=== PATIENT | male | born 1960 | race African-American/Black ===

== ENCOUNTER 2016-08-17 10:26 | Inpatient (IN) | payer OTHER ==
[2016-08-17] MEDS ORDERED: ASPIRIN 81 MG CHEW PO STA (11:12)
--- NOTE | 2016-08-17 11:17 | ED ---
Recheck HPI - General Source: patient, RN notes reviewed Mode of arrival: ambulatory Limitations: no limitations <Richelle Malcolm - Last Filed: 08/17/16 13:53> <Lei Blackburn - Last Filed: 08/17/16 13:57> - General Chief Complaint: Recheck/Abnormal Lab/Rx Stated Complaint: leg swelling Time Seen by Provider: 08/17/16 11:07 - History of Present Illness Initial Comments: 56-year-old male presents to the emergency Department chief complaint of bilateral lower external swelling. Patient states he also has had scrotal swelling. Patient states that within about a week. Patient states that seems to be getting worse. Patient states he also has a little bit of belly pain around his on the bike S. Patient states it's worse if he coughs. Patient states he did get [id number] nausea medicine but takes away his belly pain completely and he feels much better. Patient states he was concerned about signs he thought that he should be seen. Patient states he is on Lasix he denies any history of heart failure however. Patient does have a history of hypertension. Patient states he's never sought up like this so he was concerned. Patient states he is not currently having any other symptoms. Patient denies any pain and leg states it is swollen. Patient denies any recent fever, chills, shortness of breath, chest pain, back pain, abdominal pain, nausea vomiting, numbness or tingling, dysuria or hematuria, constipation or diarrhea, headaches or visual changes, or any other current symptoms. (Richelle Malcolm) - Related Data Home Medications Medication Instructions Recorded Confirmed Furosemide [Lasix] 20 mg PO DAILY 08/17/16 08/17/16 amLODIPine BESYLATE [Norvasc] 2.5 mg PO DAILY 08/17/16 08/17/16 amLODIPine BESYLATE [Norvasc] 5 mg PO DAILY 08/17/16 08/17/16 Allergies Allergy/AdvReac Type Severity Reaction Status Date / Time No Known Allergies Allergy Verified 08/17/16 10:56 Review of Systems ROS Other: All systems not noted in ROS Statement are negative. <Richelle Malcolm - Last Filed: 08/17/16 13:53> ROS Other: All systems not noted in ROS Statement are negative. <Lei Blackburn - Last Filed: 08/17/16 13:57> ROS Statement: Those systems with pertinent positive or pertinent negative responses have been documented in the HPI. Past Medical History Past Medical History: Hypertension History of Any Multi-Drug Resistant Organisms: None Reported Past Surgical History: No Surgical Hx Reported Past Psychological History: No Psychological Hx Reported Smoking Status: Never smoker Past Alcohol Use History: Occasional Past Drug Use History: None Reported <Richelle Malcolm - Last Filed: 08/17/16 13:53> General Exam Limitations: no limitations <Richelle Malcolm - Last Filed: 08/17/16 13:53> General appearance: alert, in no apparent distress Head exam: Present: atraumatic, normocephalic, normal inspection Eye exam: Present: normal appearance, PERRL, EOMI. Absent: scleral icterus, conjunctival injection, periorbital swelling ENT exam: Present: normal exam, mucous membranes moist Neck exam: Present: normal inspection. Absent: tenderness, meningismus, lymphadenopathy Respiratory exam: Present: normal lung sounds bilaterally. Absent: respiratory distress, wheezes, rales, rhonchi, stridor Cardiovascular Exam: Present: regular rate, normal rhythm, normal heart sounds. Absent: systolic murmur, diastolic murmur, rubs, gallop, clicks GI/Abdominal exam: Present: soft, normal bowel sounds. Absent: distended, tenderness, guarding, rebound, rigid Extremities exam: Present: normal inspection, full ROM, normal capillary refill. Absent: tenderness, pedal edema, joint swelling, calf tenderness Back exam: Present: normal inspection Neurological exam: Present: alert, oriented X3, CN II-XII intact Psychiatric exam: Present: normal affect, normal mood Skin exam: Present: warm, dry, intact, normal color. Absent: rash <Lei Blackburn - Last Filed: 08/17/16 13:57> - General Exam Comments Initial Comments: General: The patient is awake and alert, in no distress, and does not appear acutely ill. Eye: Pupils are equal, round and reactive to light, extra-ocular movements are intact; there is normal conjunctiva bilaterally. No signs of icterus. Ears, nose, mouth and throat: There are moist mucous membranes and no oral lesions. Neck: The neck is supple, there is no tenderness. Cardiovascular: There is a regular rate and rhythm. No murmur, rub or gallop is appreciated. Respiratory: Lungs are clear to auscultation, respirations are non-labored, breath sounds are equal. No wheezes, stridor, rales, or rhonchi. Gastrointestinal: Soft, non-distended, non-tender abdomen without masses or organomegaly noted. There is no rebound or guarding present. No CVA tenderness. Bowel sounds are unremarkable. Male : Patient does have edema to the scrotum. Back: There is no tenderness to palpation in the midline. There is no obvious deformity. No rashes noted. Musculoskeletal: Normal ROM, no tenderness, There is no pedal edema. Patient has 2+ pain edema to bilateral lower extremities Sensation intact. Pulses equal bilaterally 2+. Neurological: CN II-XII intact, There are no obvious motor or sensory deficits. Coordination appears grossly intact. Speech is normal. Skin: Skin is warm and dry and no rashes or lesions are noted. Psychiatric: Cooperative, appropriate mood & affect, normal judgment. (Richelle Malcolm) Course <Richelle Malcolm - Last Filed: 08/17/16 13:53> <Lei Blackburn - Last Filed: 08/17/16 13:57> Vital Signs 08/17/16 10:40 Temperature 97.8 F Pulse Rate 94 Respiratory 20 Rate Blood Pressure 142/93 O2 Sat by Pulse 98 Oximetry - Reevaluation(s) Reevaluation #1: 08/17/16 13:55 Patient is in no acute cardiac distress (Lei Blackburn) Medical Decision Making - Lab Data Result diagrams: 08/17/16 12:10 08/17/16 12:10 - EKG Data -: EKG Interpreted by Nv - Radiology Data Radiology results: report reviewed, image reviewed <Richelle Malcolm - Last Filed: 08/17/16 13:53> - Lab Data Result diagrams: 08/17/16 12:10 08/17/16 12:10 <Lei Blackburn - Last Filed: 08/17/16 13:57> - Medical Decision Making 56-year-old male presents to emergency room chief complaint unfortunately swelling and scrotal swelling. At this time the patient does appear to be CHF with elevated BNP. Chest x-ray does show suspicion as well. At this time patient does also have a mildly elevated troponin. Patient's creatinine is mildly elevated but not much more than usual. At this time we will start IV heparin we'll put patient on aspirin we will also start the patient on IV Lasix. We will have cardiology consult. Dr. Castanon was contacted by Dr. Blackburn regarding the case. (Richelle Malcolm) 56 now the ER for evaluation of pain. Patient is with CHF, with ACS, patient will be admitted for anticoagulation and cardiac evaluation, initial EKG shows no ST elevations (Lei Blackburn) - Lab Data Lab Results 08/17/16 08/17/16 08/17/16 Range/Units 12:10 12:10 12:10 WBC 3.4 L (3.8-10.6) k/uL RBC 4.56 (4.30-5.90) m/uL Hgb 13.4 (13.0-17.5) gm/dL Hct 43.8 (39.0-53.0) % MCV 96.1 (80.0-100.0) fL MCH 29.3 (25.0-35.0) pg MCHC 30.5 L (31.0-37.0) g/dL RDW 16.4 H (11.5-15.5) % Plt Count 257 (150-450) k/uL Neutrophils % 70 % Lymphocytes % 14 % Monocytes % 5 % Eosinophils % 6 % Basophils % 1 % Neutrophils # 2.4 (1.3-7.7) k/uL Lymphocytes # 0.5 L (1.0-4.8) k/uL Monocytes # 0.2 (0-1.0) k/uL Eosinophils # 0.2 (0-0.7) k/uL Basophils # 0.1 (0-0.2) k/uL Hypochromasia Moderate Anisocytosis Slight Sodium 142 (137-145) mmol/L Potassium 4.3 (3.5-5.1) mmol/L Chloride 102 (98-107) mmol/L Carbon Dioxide 28 (22-30) mmol/L Anion Gap 12 mmol/L BUN 19 (9-20) mg/dL Creatinine 1.38 H (0.66-1.25) mg/dL Est GFR (MDRD) Af Amer >60 (>60 ml/min/1.73 sqM) Est GFR (MDRD) Non-Af 53 (>60 ml/min/1.73 sqM) Glucose 89 (74-99) mg/dL Calcium 9.3 (8.4-10.2) mg/dL Magnesium 1.8 (1.6-2.3) mg/dL Total Bilirubin 2.9 H (0.2-1.3) mg/dL AST 27 (17-59) U/L ALT 45 (21-72) U/L Alkaline Phosphatase 158 H (38-126) U/L Total Creatine Kinase 152 (55-170) U/L CK-MB (CK-2) 1.2 (0.0-2.4) ng/mL CK-MB (CK-2) Rel Index 0.8 Troponin I 0.066 H* (0.000-0.034) ng/mL NT-Pro-B Natriuret Pep pg/mL Total Protein 6.9 (6.3-8.2) g/dL Albumin 3.8 (3.5-5.0) g/dL Amylase 33 (30-110) U/L Lipase 92 (23-300) U/L Urine Color Urine Appearance (Clear) Urine pH (5.0-8.0) Ur Specific Arnett (1.001-1.035) Urine Protein (Negative) Urine Glucose (UA) (Negative) Urine Ketones (Negative) Urine Blood (Negative) Urine Nitrate (Negative) Urine Bilirubin (Negative) Urine Urobilinogen (<2.0) mg/dL Ur Leukocyte Esterase (Negative) Urine WBC (0-5) /hpf Ur Squamous Epith Cells (0-4) /hpf Hyaline Casts (0-2) /lpf Urine Mucus (None) /hpf 08/17/16 08/17/16 Range/Units 12:10 12:35 WBC (3.8-10.6) k/uL RBC (4.30-5.90) m/uL Hgb (13.0-17.5) gm/dL Hct (39.0-53.0) % MCV (80.0-100.0) fL MCH (25.0-35.0) pg MCHC (31.0-37.0) g/dL RDW (11.5-15.5) % Plt Count (150-450) k/uL Neutrophils % % Lymphocytes % % Monocytes % % Eosinophils % % Basophils % % Neutrophils # (1.3-7.7) k/uL Lymphocytes # (1.0-4.8) k/uL Monocytes # (0-1.0) k/uL Eosinophils # (0-0.7) k/uL Basophils # (0-0.2) k/uL Hypochromasia Anisocytosis Sodium (137-145) mmol/L Potassium (3.5-5.1) mmol/L Chloride (98-107) mmol/L Carbon Dioxide (22-30) mmol/L Anion Gap mmol/L BUN (9-20) mg/dL Creatinine (0.66-1.25) mg/dL Est GFR (MDRD) Af Amer (>60 ml/min/1.73 sqM) Est GFR (MDRD) Non-Af (>60 ml/min/1.73 sqM) Glucose (74-99) mg/dL Calcium (8.4-10.2) mg/dL Magnesium (1.6-2.3) mg/dL Total Bilirubin (0.2-1.3) mg/dL AST (17-59) U/L ALT (21-72) U/L Alkaline Phosphatase (38-126) U/L Total Creatine Kinase (55-170) U/L CK-MB (CK-2) (0.0-2.4) ng/mL CK-MB (CK-2) Rel Index Troponin I (0.000-0.034) ng/mL NT-Pro-B Natriuret Pep 5920 pg/mL Total Protein (6.3-8.2) g/dL Albumin (3.5-5.0) g/dL Amylase (30-110) U/L Lipase (23-300) U/L Urine Color Yellow Urine Appearance Clear (Clear) Urine pH 6.0 (5.0-8.0) Ur Specific Arnett 1.013 (1.001-1.035) Urine Protein 3+ H (Negative) Urine Glucose (UA) Negative (Negative) Urine Ketones Negative (Negative) Urine Blood Negative (Negative) Urine Nitrate Negative (Negative) Urine Bilirubin Negative (Negative) Urine Urobilinogen 6.0 (<2.0) mg/dL Ur Leukocyte Esterase Negative (Negative) Urine WBC <1 (0-5) /hpf Ur Squamous Epith Cells <1 (0-4) /hpf Hyaline Casts 3 H (0-2) /lpf Urine Mucus Rare H (None) /hpf 08/17/16 13:28 Patient's EKG was reviewed that does show sinus rhythm with PVCs. There is some left atrial enlargement. With a prolonged QT. There does not appear to be any ST elevation. Ventricular rate was 90. (Richelle Malcolm) Critical Care Time Critical Care Time: Yes Total Critical Care Time: 31 <Lei Blackburn - Last Filed: 08/17/16 13:57> Disposition Time of Disposition: 13:29 Decision Date: 08/17/16 Decision Time: 13:30 <Richelle Malcolm - Last Filed: 08/17/16 13:53> <Lei Blackburn - Last Filed: 08/17/16 13:57> Clinical Impression: Acute exacerbation of CHF (congestive heart failure), Scrotal swelling, Elevated troponin, Elevated creatine kinase Disposition: ADMITTED IP TO THIS HOSP Condition: Stable
[2016-08-17 12:23] LABS: Anisocytosis Slight; Basophils # (A) 0.1 k/uL (0-0.2); Basophils % (A) 1 %; CH 29.4; CHCM 30.8; Eosinophils # (A) 0.2 k/uL (0-0.7); Eosinophils % (A) 6 %; HCT 43.8 % (39.0-53.0); HDW 2.77; HGB 13.4 gm/dL (13.0-17.5); Hypochromasia Moderate; Luc # (Auto) 0.13; Luc % (Auto) 4; Lymphocytes # (A) 0.5 k/uL (1.0-4.8); Lymphocytes % (A) 14 %; MCH 29.3 pg (25.0-35.0); MCHC 30.5 g/dL (31.0-37.0); MCV 96.1 fL (80.0-100.0); Mean Platelet Volume 7.2; Monocytes # (A) 0.2 k/uL (0-1.0); Monocytes % (A) 5 %; Neutrophils # (A) 2.4 k/uL (1.3-7.7); Neutrophils % (A) 70 %; RBC 4.56 m/uL (4.30-5.90); RDW 16.4 % (11.5-15.5); WBC 3.4 k/uL (3.8-10.6); WBC (Perox) 3.33
[2016-08-17 12:33] LABS: ALT 45 U/L (21-72); AST 27 U/L (17-59); Alkaline Phosphatase 158 U/L (38-126); Amylase 33 U/L (30-110); Anion Gap 12 mmol/L; Blood Urea Nitrogen 19 mg/dL (9-20); Calcium 9.3 mg/dL (8.4-10.2); Carbon Dioxide 28 mmol/L (22-30); Chloride 102 mmol/L (98-107); Glucose 89 mg/dL (74-99); Magnesium 1.8 mg/dL (1.6-2.3); Non-African American GFR(MDRD) 53 (>60 ml/min/1.73 sqM); Potassium 4.3 mmol/L (3.5-5.1); Sodium 142 mmol/L (137-145); Total Bilirubin 2.9 mg/dL (0.2-1.3); Total Protein 6.9 g/dL (6.3-8.2)
--- NOTE | 2016-08-17 12:33 | XR ---
EXAMINATION TYPE: XR chest 2V DATE OF EXAM: 08/17/2016 12:28 PM COMPARISON: Chest x-ray January 25, 2016 HISTORY: Chest pain TECHNIQUE: Frontal and lateral views of the chest are obtained. FINDINGS: Diminished inspiration is seen on current study with perihilar edema and/or infiltrates fel t present. The cardiac silhouette size is enlarged. No large pleural effusion or pneumothorax is seen bilaterally The osseous structures are intact. IMPRESSION: Cannot exclude CHF exacerbation as there is cardiomegaly with new mild central alveolar edema and/or infiltrates, clinical correlation advised. Finding may be exaggerated by poor inspiratio n.
--- NOTE | 2016-08-17 12:35 | XR ---
EXAMINATION TYPE: XR abdomen 2V DATE OF EXAM: 08/17/2016 12:28 PM CLINICAL HISTORY: Abdominal pain with nausea and vomiting for one week. TECHNIQUE: Supine and upright views of the abdomen are obtained. COMPARISON: None. FINDINGS: Scattered gas is seen in non-distended small bowel loops. Some gas-filled small bowel loop s in the left upper to mid abdomen are prominent, few are dilated up to 3.8 cm though this is usually exaggerated on plain films. No significant gastric distention is identified. Gas is seen in nondiste nded colon. Cardiomegaly is present. No pneumoperitoneum or suspicious calcification is identified. V ascular calcification is present in the pelvis. Visualized osseous structures are intact. IMPRESSION: Overall nonspecific favor nonobstructive bowel gas pattern.
[2016-08-17] MEDS ORDERED: FUROSEMIDE 10 MG/ML 4 ML VIAL IV STA (12:36)
[2016-08-17 12:58] LABS: Appearance,Urine Clear (Clear); Bilirubin,Urine Negative (Negative); Glucose,Urine (UA) Negative (Negative); Ketones,Urine Negative (Negative); Leukocyte Esterase,Urine Negative (Negative); Mucus,Urine Rare /hpf; Nitrite,Urine Negative (Negative); Particle Count 1940; Protein,Urine 3+ (Negative); Specific Gravity,Urine 1.013 (1.001-1.035); Squamous Epithelial Cell,Urine <1 /hpf (0-4); UA Billing (MACRO vs. MICRO) MICRO; WBC,Urine <1 /hpf (0-5)
[2016-08-17 12:58] LABS: Creatine Kinase MB 1.2 ng/mL (0.0-2.4)
[2016-08-17 13:03] LABS: Troponin I 0.066 ng/mL (0.000-0.034)
[2016-08-17] MEDS ORDERED: ASPIRIN 325 MG TAB PO STA (13:30)
[2016-08-17] MEDS ORDERED: FUROSEMIDE 10 MG/ML 4 ML VIAL IV SCH (13:30)
[2016-08-17] MEDS ORDERED: HEPARIN SODIUM,PORCINE 5,000 UNIT/ML 1 ML VIAL IV PRN (13:31)
[2016-08-17] MEDS ORDERED: HEPARIN SODIUM,PORCINE 5,000 UNIT/ML 1 ML VIAL IV ONE (13:31)
[2016-08-17] MEDS ORDERED: HEPARIN SODIUM,PORCINE/D5W PMX 25,000 UNIT in DEXTROSE/WATER 1 500ML.BAG IV SCH (13:45)
[2016-08-17 14:17] LABS: INR 1.4 (<1.1); Partial Thromboplastin Time 26.9 sec (22.0-30.0); Prothrombin Time 13.5 sec (9.0-12.0)
[2016-08-17] MEDS: NITROGLYCERIN OINT 1 INCH/GM PACKET TOPICAL SCH ×2 (17:16→22:16)
[2016-08-17 21:03] LABS: Creatine Kinase MB 1.3 ng/mL (0.0-2.4)
[2016-08-17 21:05] LABS: Troponin I 0.055 ng/mL (0.000-0.034)
[2016-08-17] MEDS: FUROSEMIDE 10 MG/ML 4 ML VIAL IV SCH (23:38)
[2016-08-18 03:13] LABS: Anisocytosis Slight; Basophils % (A) 1 %; CH 29.4; CHCM 30.9; Eosinophils # (A) 0.1 k/uL (0-0.7); Eosinophils % (A) 4 %; HCT 40.7 % (39.0-53.0); HDW 2.77; HGB 12.7 gm/dL (13.0-17.5); Hypochromasia Moderate; Luc # (Auto) 0.12; Luc % (Auto) 4; Lymphocytes # (A) 0.6 k/uL (1.0-4.8); Lymphocytes % (A) 20 %; MCH 29.8 pg (25.0-35.0); MCHC 31.1 g/dL (31.0-37.0); MCV 95.6 fL (80.0-100.0); Mean Platelet Volume 7.3; Monocytes # (A) 0.4 k/uL (0-1.0); Monocytes % (A) 12 %; Neutrophils # (A) 1.7 k/uL (1.3-7.7); Neutrophils % (A) 58 %; RBC 4.26 m/uL (4.30-5.90); RDW 16.3 % (11.5-15.5); WBC 2.9 k/uL (3.8-10.6); WBC (Perox) 3.03
[2016-08-18 03:20] LABS: INR 1.4 (<1.1); Partial Thromboplastin Time 46.3 sec (22.0-30.0); Prothrombin Time 13.8 sec (9.0-12.0)
[2016-08-18 03:50] LABS: Creatine Kinase MB 1.1 ng/mL (0.0-2.4)
[2016-08-18 03:57] LABS: Troponin I 0.055 ng/mL (0.000-0.034)
[2016-08-18] MEDS: FUROSEMIDE 10 MG/ML 4 ML VIAL IV SCH (08:34)
[2016-08-18] MEDS: ASPIRIN 325 MG TAB PO SCH (09:19)
[2016-08-18] MEDS: LISINOPRIL 5 MG TAB PO SCH (09:25)
--- NOTE | 2016-08-18 09:30 | CONS ---
DATE OF CONSULTATION: CHIEF COMPLAINT: New onset congestive heart failure. Karan is a 56-year-old gentleman with no significant past medical history that came to hospital complaining of bilateral lower extremity swelling. This has been going on for the last 2 weeks and now has developed even scrotal edema. He complains of exertional shortness of breath. There is no history of paroxysmal nocturnal dyspnea or orthopnea. He has history of hypertension, but denies coronary artery disease, angioplasty or valvular heart disease that he knows of. MEDICATIONS: The patient was on amlodipine, Lasix at home. ALLERGIES: There are no known drug allergies. Family history is negative for premature coronary artery disease. SOCIAL HISTORY: Denies current smoking, EtOH use or drug abuse. REVIEW OF SYSTEMS: HEENT is unremarkable. CARDIAC: As described above. RESPIRATORY: Negative. GI: Negative. GENITOURINARY: Negative. ALLERGY/IMMUNOLOGY: Negative. ENDOCRINE: Negative. DERMATOLOGY: Negative. CONSTITUTIONAL: Negative. The rest of the system review is not relevant. On exam, he is comfortable at rest. Heart rate is 89 beats per minute, blood pressure is 140/80, respiratory rate is 18. There is no jugular venous distention. Chest exam reveals good air entry bilaterally. Heart exam reveals first and second heart sounds, a systolic murmur at the left lower sternal border. Abdomen is soft. Exam of the extremities reveals 3+ edema. Peripheral pulses are felt. Labs show a hemoglobin of 12.7, platelet count is 260. Tropes are mildly elevated. BUN is 19. Creatinine is 1.3. Potassium is 4.3, AST, ALT are within normal limits. ASSESSMENT: 1. Acute onset congestive heart failure, probably systolic. 2. History of hypertension. 3. Abnormal EKG. 4. Mild troponin elevation. PLAN: I am going to treat the patient with IV Lasix. I am going to stop the IV heparin and put him on subQ heparin. Increase the dose of Lasix to 80 mg IV push t.i.d., start him on an JESSY inhibitor and a beta pierre. I will decide on further course of action based on how he progresses from here.
--- NOTE | 2016-08-18 10:14 | ECHOF ---
Referral Reason:chf MEASUREMENTS -------- HEIGHT: 180.3 cm WEIGHT: 105.7 kg BP: 118/67 IVSd: 1.7 cm (0.6 - 1.1) LVIDd: 5.6 cm (3.9 - 5.3) LVPWd: 1.3 cm (0.6 - 1.1) IVSs: 2.2 cm LVIDs: 4.8 cm LVPWs: 1.5 cm LAESV Index (A-L): 57.02 ml/m Ao Diam: 2.7 cm (2.0 - 3.7) AV Cusp: 1.9 cm (1.5 - 2.6) LA Diam: 5.2 cm (2.7 - 3.8) MV EXCURSION: 12.148 mm (> 18.000) MV EF SLOPE: 88 mm/s (70 - 150) EPSS: 0.5 cm MV E Mo: 0.90 m/s MV DecT: 153 ms MV A Mo: 0.46 m/s MV E/A Ratio: 1.95 RAP: 15.00 mmHg RVSP: 52.29 mmHg FINDINGS -------- Sinus rhythm with extra systolic beats. This was a technically good study. There is moderate concentric left ventricular hypertrophy. There is moderate global hypokinesis of LV . Overall left ventricular systolic function is moderately impaired with, an EF between 35 - 40 %. The right ventricle is normal in size and function. LA is severely dilated >40 ml/m2 The right atrium is normal in size. Aortic valve is trileaflet and is mildly thickened. The mitral valve leaflets are mildly thickened. Mild mitral annular calcification present. Mild mitral regurgitation is present. Moderate tricuspid regurgitation present. There is moderate pulmonary hypertension. The right ventricular systolic pressure, as measured by Doppler, is 52.29mmHg. Pulmonic valve appears structurally normal. The aortic root size is normal. The inferior vena cava is mildly dilated. There is a trivial pericardial effusion present. CONCLUSIONS -------- 1. Sinus rhythm with extra systolic beats. 2. The mitral valve leaflets are mildly thickened. 3. Mild mitral annular calcification present. 4. Mild mitral regurgitation is present. 5. Moderate tricuspid regurgitation present. 6. There is moderate pulmonary hypertension. 7. The right ventricular systolic pressure, as measured by Doppler, is 52.29mmHg. 8. Pulmonic valve appears structurally normal. 9. The aortic root size is normal. 10. The inferior vena cava is mildly dilated. 11. There is a trivial pericardial effusion present. 12. This was a technically good study. 13. There is moderate concentric left ventricular hypertrophy. 14. There is moderate global hypokinesis of LV . 15. Overall left ventricular systolic function is moderately impaired with, an EF between 35 - 40 %. 16. The right ventricle is normal in size and function. 17. LA is severely dilated >40 ml/m2 18. The right atrium is normal in size. 19. Aortic valve is trileaflet and is mildly thickened. FLAT KNITTER: Priyanka Ambrose RDCS
[2016-08-18] MEDS ORDERED: IBUPROFEN 400 MG TAB PO STA (10:38)
[2016-08-18 12:05] LABS: ALT 42 U/L (21-72); AST 26 U/L (17-59); Alkaline Phosphatase 141 U/L (38-126); Anion Gap 14 mmol/L; Blood Urea Nitrogen 16 mg/dL (9-20); Calcium 9.2 mg/dL (8.4-10.2); Carbon Dioxide 31 mmol/L (22-30); Chloride 96 mmol/L (98-107); Glucose 103 mg/dL (74-99); Non-African American GFR(MDRD) 59 (>60 ml/min/1.73 sqM); Potassium 3.6 mmol/L (3.5-5.1); Sodium 141 mmol/L (137-145); Total Bilirubin 3.3 mg/dL (0.2-1.3); Total Protein 6.6 g/dL (6.3-8.2)
[2016-08-18 12:44] LABS: Anisocytosis Slight; Basophils # (A) 0.1 k/uL (0-0.2); Basophils % (A) 2 %; CH 29.3; CHCM 30.7; Eosinophils # (A) 0.1 k/uL (0-0.7); Eosinophils % (A) 4 %; HCT 43.2 % (39.0-53.0); HDW 2.71; HGB 13.3 gm/dL (13.0-17.5); Hypochromasia Moderate; Luc # (Auto) 0.06; Luc % (Auto) 2; Lymphocytes # (A) 0.4 k/uL (1.0-4.8); Lymphocytes % (A) 15 %; MCH 29.5 pg (25.0-35.0); MCHC 30.8 g/dL (31.0-37.0); Mean Platelet Volume 7.7; Monocytes # (A) 0.3 k/uL (0-1.0); Monocytes % (A) 9 %; Neutrophils # (A) 1.9 k/uL (1.3-7.7); Neutrophils % (A) 68 %; RDW 16.3 % (11.5-15.5); WBC 2.9 k/uL (3.8-10.6); WBC (Perox) 3.16
[2016-08-18] MEDS: HEPARIN SODIUM,PORCINE 5,000 UNIT/ML 1 ML VIAL SQ SCH ×2 (15:40→23:33)
[2016-08-18] MEDS: FUROSEMIDE 10 MG/ML 10 ML VIAL IV SCH ×2 (15:40→23:33)
--- NOTE | 2016-08-18 16:02 | P.PN ---
Subjective 56-year-old presented on the day of admission to the emergency room with a chief complaint of noting increase edema to the bilateral lower extremities with scrotal edema. He stated that the symptoms occurred about a week ago and became more symptomatic done worse. He stated that he felt nauseated but did not note any decrease in appetite and also no active emesis. Patient stated that he became concerned came in the emergency room for the above-mentioned symptoms. Patient stated he never been told he had heart failure before does have a history of hypertension. An echocardiogram was obtained. It showed left ventricular systolic function moderately impaired with an EF between 35 and 40%. There is moderate pulmonary hypertension. Patient is being treated for acute exacerbation decompensated congestive heart failure systolic dysfunction with a mildly elevated troponin. Cardiology recommends IV Lasix start patient on an JESSY inhibitor and a beta pierre and monitor the response patient was started on Lasix 80 IV push 3 times a day Objective - Vital Signs Vital signs: Vital Signs Temp 97.9 F 08/18/16 11:24 Pulse 92 08/18/16 12:00 Resp 16 08/18/16 15:38 BP 135/95 08/18/16 15:38 Pulse Ox 94 L 08/18/16 15:38 Intake & Output 08/17/16 08/18/16 08/18/16 18:59 06:59 18:59 Intake Total 360 331.045 720 Output Total 1000 4025 600 Balance -807 -3613.955 120 Weight 113.1 kg 105.7 kg Intake: Intake, IV Titration 331.045 Amount Heparin Sodium,Porcine/ 331.045 D5w Pmx 25,000 unit In Dextrose/Water 1 500ml. bag @ 11.024 UNITS/KG/HR 20 mls/hr IV .Q24H [facility] Rx #:[id number] Oral 360 720 Output: Urine 1000 4025 600 Other: Voiding Method Urinal Toilet Urinal Urinal # Voids 1 1 3 - Exam Physical exam 56-year-old gentleman sitting up legs are edematous 3+ nonpitting denies chest pain denies shortness of breath lungs fine crackles at the bases upper airways bronchial breath sounds Heart S1-S2 audible positive murmur noted Abdomen obese soft nontender reports a nausea sensation no active emesis Extremities persistent nonpitting bilateral 3+ lower extremity edema - Labs CBC & Chem 7: 08/18/16 10:57 08/18/16 10:57 Labs: Abnormal Lab Results - Last 24 Hours (Table) 08/17/16 08/17/16 08/18/16 Range/Units 20:09 20:09 02:37 WBC (3.8-10.6) k/uL RBC (4.30-5.90) m/uL Hgb (13.0-17.5) gm/dL MCHC (31.0-37.0) g/dL RDW (11.5-15.5) % Lymphocytes # (1.0-4.8) k/uL PT (9.0-12.0) sec APTT 31.0 H (22.0-30.0) sec Chloride (98-107) mmol/L Carbon Dioxide (22-30) mmol/L Creatinine (0.66-1.25) mg/dL Glucose (74-99) mg/dL Total Bilirubin (0.2-1.3) mg/dL Alkaline Phosphatase (38-126) U/L Troponin I 0.055 H* 0.055 H* (0.000-0.034) ng/mL 08/18/16 08/18/16 08/18/16 Range/Units 02:37 02:39 10:57 WBC 2.9 L 2.9 L (3.8-10.6) k/uL RBC 4.26 L (4.30-5.90) m/uL Hgb 12.7 L (13.0-17.5) gm/dL MCHC 30.8 L (31.0-37.0) g/dL RDW 16.3 H 16.3 H (11.5-15.5) % Lymphocytes # 0.6 L 0.4 L (1.0-4.8) k/uL PT 13.8 H (9.0-12.0) sec APTT 46.3 H (22.0-30.0) sec Chloride (98-107) mmol/L Carbon Dioxide (22-30) mmol/L Creatinine (0.66-1.25) mg/dL Glucose (74-99) mg/dL Total Bilirubin (0.2-1.3) mg/dL Alkaline Phosphatase (38-126) U/L Troponin I (0.000-0.034) ng/mL 02/07/17 Range/Units 10:57 WBC (3.8-10.6) k/uL RBC (4.30-5.90) m/uL Hgb (13.0-17.5) gm/dL MCHC (31.0-37.0) g/dL RDW (11.5-15.5) % Lymphocytes # (1.0-4.8) k/uL PT (9.0-12.0) sec APTT (22.0-30.0) sec Chloride 96 L (98-107) mmol/L Carbon Dioxide 31 H (22-30) mmol/L Creatinine 1.26 H (0.66-1.25) mg/dL Glucose 103 H (74-99) mg/dL Total Bilirubin 3.3 H (0.2-1.3) mg/dL Alkaline Phosphatase 141 H (38-126) U/L Troponin I (0.000-0.034) ng/mL Assessment and Plan Plan: Impression Present on admission shortness of breath with bilateral's lower extremity edema suspect due to an acute exacerbation decompensated heart failure systolic dysfunction Present on admission elevated troponin History of hypertension Echocardiogram August 18 left ventricular systolic function mildly impaired EF between 35 and 40% with moderate pulmonary hypertension Hypertensive heart disease Obesity BMI 34 Present on admission acute renal failure Plan Continue with recommendations by cardiology service Monitor electrolytes keep in a therapeutic range Daily weights and record Monitor blood pressure heart rate adjust antihypertensive meds as indicated Continue aspirin Coreg and lisinopril Further recommendations pending The above dictated assessment and findings were discussed with dr hoang . Impression and the plan of care have been dictated as directed. Jerrica Alford nurse practitioner acting as a scribe for dr hoang.
[2016-08-18 16:49] LABS: Cholesterol 154 mg/dL (<200); HDL Cholesterol 34 mg/dL (40-60); Triglycerides 87 mg/dL (<150)
[2016-08-18] MEDS: CARVEDILOL 3.125 MG TAB PO SCH (17:10)
[2016-08-18] MEDS ORDERED: Potassium Replacement Protocol 1 EACH MISC MISCELLANE PRN (17:36)
[2016-08-18] MEDS: FAMOTIDINE 20 MG TAB PO SCH ×2 (19:58→22:37)
[2016-08-19 06:21] LABS: Anisocytosis Slight; Basophils # (A) 0.1 k/uL (0-0.2); Basophils % (A) 2 %; CH 29.3; CHCM 31.1; Eosinophils # (A) 0.2 k/uL (0-0.7); Eosinophils % (A) 7 %; HCT 44.5 % (39.0-53.0); HDW 2.72; HGB 13.8 gm/dL (13.0-17.5); Hypochromasia Moderate; Luc # (Auto) 0.11; Luc % (Auto) 3; Lymphocytes # (A) 0.6 k/uL (1.0-4.8); Lymphocytes % (A) 18 %; MCH 29.5 pg (25.0-35.0); MCHC 31.1 g/dL (31.0-37.0); Mean Platelet Volume 7.2; Monocytes # (A) 0.3 k/uL (0-1.0); Monocytes % (A) 9 %; Neutrophils % (A) 62 %; RBC 4.68 m/uL (4.30-5.90); RDW 16.2 % (11.5-15.5); WBC 3.3 k/uL (3.8-10.6); WBC (Perox) 3.47
[2016-08-19 06:29] LABS: INR 1.4 (<1.1); Prothrombin Time 13.6 sec (9.0-12.0)
[2016-08-19 06:45] LABS: ALT 39 U/L (21-72); AST 24 U/L (17-59); Alkaline Phosphatase 147 U/L (38-126); Anion Gap 14 mmol/L; Blood Urea Nitrogen 16 mg/dL (9-20); Calcium 9.4 mg/dL (8.4-10.2); Carbon Dioxide 35 mmol/L (22-30); Chloride 94 mmol/L (98-107); Glucose 87 mg/dL (74-99); Non-African American GFR(MDRD) 56 (>60 ml/min/1.73 sqM); Potassium 3.5 mmol/L (3.5-5.1); Sodium 143 mmol/L (137-145); Total Bilirubin 2.7 mg/dL (0.2-1.3); Total Protein 6.7 g/dL (6.3-8.2)
[2016-08-19] MEDS: CARVEDILOL 3.125 MG TAB PO SCH ×2 (07:01→17:03)
[2016-08-19] MEDS: FUROSEMIDE 10 MG/ML 10 ML VIAL IV SCH (08:11)
[2016-08-19] MEDS: HEPARIN SODIUM,PORCINE 5,000 UNIT/ML 1 ML VIAL SQ SCH ×3 (08:23→23:31)
[2016-08-19] MEDS: FAMOTIDINE 20 MG TAB PO SCH ×2 (08:23→20:39)
[2016-08-19] MEDS: ASPIRIN 325 MG TAB PO SCH (08:23)
[2016-08-19] MEDS: LISINOPRIL 5 MG TAB PO SCH (08:23)
[2016-08-19 11:56] LABS: Glucose,Whole Blood 84 mg/dL (75-99)
--- NOTE | 2016-08-19 13:28 | PN ---
Karan is a 56-year-old gentleman who is admitted to hospital with acute onset congestive heart failure secondary to systolic dysfunction. The patient also has moderate pulmonary hypertension. We treated him with IV diuretics with significant improvement in his symptoms. He is on 80 mg of IV Lasix q.8 hours, but continues to have bilateral leg edema. He came in with his admission weight was 113 and it is down to 100 kg today. He is doing well and is free of symptoms, anxious to go home. On exam, heart rate is 78. Blood pressure is 127/92, respiratory rate is 18. Chest exam reveals good air entry bilaterally. Heart exam reveals first and second heart sounds. No gallop. Abdomen is soft. Exam of the extremities reveals bilateral pitting edema, but much improved. Labs show a potassium of 3.5. Creatinine is 1.33. ASSESSMENT: Acute onset systolic heart failure. PLAN: We will treat the patient with Coreg, IV Lasix, Zestril. Reviewed echo findings with him. I am going to switch him to p.o. Lasix today. Hopefully, we can discharge him home tomorrow.
[2016-08-19 13:53] VITALS: BMI 32.6
--- NOTE | 2016-08-19 14:53 | P.PN ---
Subjective 56-year-old male being seen by the attending this morning. Patient states breathing feels slightly improved. Patient appears in no acute distress. Patients being treated by cardiology for an acute exacerbation systolic congestive heart failure. Patient was started on IV Lasix and JESSY inhibitor and a beta pierre there's been a noted improvement anticipate discharge within the next 24-48 hours if no clinical change Objective - Vital Signs Vital signs: Vital Signs Temp 98.2 F 08/19/16 11:24 Pulse 85 08/19/16 12:00 Resp 16 08/19/16 11:24 BP 127/92 08/19/16 11:24 Pulse Ox 96 08/19/16 11:24 Intake & Output 08/18/16 08/19/16 08/19/16 18:59 06:59 18:59 Intake Total 840 360 Output Total 600 3450 1475 Balance 240 -3450 -1115 Weight 100.4 kg 100.4 kg Intake: Oral 840 360 Output: Urine 600 3450 1475 Other: Voiding Method Urinal Urinal Urinal # Voids 3 - Exam Physical exam 56-year-old gentleman alert oriented appears in no acute distress denies chest pain denies shortness of breath lungs fine crackles at the bases upper airways bronchial breath sounds Heart S1-S2 audible positive murmur noted Abdomen obese soft nontender reports a nausea sensation no active emesis Extremities noted improvement in edema to the lower extremities - Labs CBC & Chem 7: 08/19/16 05:46 08/19/16 05:46 Labs: Abnormal Lab Results - Last 24 Hours (Table) 08/18/16 08/19/16 08/19/16 Range/Units 10:57 05:46 05:46 WBC 3.3 L (3.8-10.6) k/uL RDW 16.2 H (11.5-15.5) % Lymphocytes # 0.6 L (1.0-4.8) k/uL PT 13.6 H (9.0-12.0) sec Chloride (98-107) mmol/L Carbon Dioxide (22-30) mmol/L Creatinine (0.66-1.25) mg/dL Total Bilirubin (0.2-1.3) mg/dL Alkaline Phosphatase (38-126) U/L LDL Cholesterol, Calc 103 H (0-99) mg/dL HDL Cholesterol 34 L (40-60) mg/dL 08/19/16 Range/Units 05:46 WBC (3.8-10.6) k/uL RDW (11.5-15.5) % Lymphocytes # (1.0-4.8) k/uL PT (9.0-12.0) sec Chloride 94 L (98-107) mmol/L Carbon Dioxide 35 H (22-30) mmol/L Creatinine 1.33 H (0.66-1.25) mg/dL Total Bilirubin 2.7 H (0.2-1.3) mg/dL Alkaline Phosphatase 147 H (38-126) U/L LDL Cholesterol, Calc (0-99) mg/dL HDL Cholesterol (40-60) mg/dL Assessment and Plan Plan: Impression Present on admission shortness of breath with bilateral's lower extremity edema suspect due to an acute exacerbation decompensated heart failure systolic dysfunction Present on admission elevated troponin suspect due to the acute exacerbation of congestive heart failure systolic dysfunction History of hypertension Echocardiogram August 18 left ventricular systolic function mildly impaired EF between 35 and 40% with moderate pulmonary hypertension Hypertensive heart disease Obesity BMI 34 Present on admission acute renal failure Plan Continue with recommendations by cardiology service Monitor electrolytes keep in a therapeutic range Daily weights and record Monitor blood pressure heart rate adjust antihypertensive meds as indicated Continue aspirin Coreg and lisinopril Anticipate discharge within the next 24 hours Lasix 60 3 times a day by mouth recommendations cardiology The above dictated assessment and findings were discussed with dr hoang . Impression and the plan of care have been dictated as directed. Jerrica Alford nurse practitioner acting as a scribe for dr hoang.
[2016-08-19 17:02] LABS: Glucose,Whole Blood 83 mg/dL (75-99)
[2016-08-19] MEDS: FUROSEMIDE 20 MG TAB PO SCH ×2 (20:02→20:41)
[2016-08-19 21:18] LABS: Glucose,Whole Blood 101 mg/dL (75-99)
[2016-08-20 00:54] VITALS: RESP 16
[2016-08-20 04:13] VITALS: PULSE 83
[2016-08-20 06:12] LABS: Glucose,Whole Blood 93 mg/dL (75-99)
[2016-08-20 06:34] LABS: Anisocytosis Slight; Aty Lym Flag Slight; CH 29.2; CHCM 30.7; HCT 43.6 % (39.0-53.0); HDW 2.63; HGB 13.7 gm/dL (13.0-17.5); Hypochromasia Moderate; MCH 30.1 pg (25.0-35.0); MCHC 31.4 g/dL (31.0-37.0); MCV 95.8 fL (80.0-100.0); Mean Platelet Volume 7.4; RBC 4.55 m/uL (4.30-5.90); RDW 16.1 % (11.5-15.5); WBC (Perox) 3.05
[2016-08-20 06:45] LABS: ALT 39 U/L (21-72); AST 27 U/L (17-59); Alkaline Phosphatase 143 U/L (38-126); Anion Gap 9 mmol/L; Blood Urea Nitrogen 20 mg/dL (9-20); Calcium 9.6 mg/dL (8.4-10.2); Carbon Dioxide 38 mmol/L (22-30); Chloride 94 mmol/L (98-107); Glucose 95 mg/dL (74-99); Non-African American GFR(MDRD) 52 (>60 ml/min/1.73 sqM); Potassium 4.1 mmol/L (3.5-5.1); Sodium 141 mmol/L (137-145); Total Protein 6.6 g/dL (6.3-8.2)
[2016-08-20] MEDS: CARVEDILOL 3.125 MG TAB PO SCH (06:51)
[2016-08-20 08:34] LABS: Add Differential Manual Differential
[2016-08-20 08:37] LABS: Manual Review Performed; Nucleated Red Blood Cells 0 /100 WBC (0-0); Total Cells Counted 100
[2016-08-20 08:38] LABS: Large Platelets Present
[2016-08-20] MEDS: FUROSEMIDE 20 MG TAB PO SCH (09:12)
[2016-08-20] MEDS: FAMOTIDINE 20 MG TAB PO SCH (09:12)
[2016-08-20] MEDS: LISINOPRIL 5 MG TAB PO SCH (09:12)
[2016-08-20] MEDS: HEPARIN SODIUM,PORCINE 5,000 UNIT/ML 1 ML VIAL SQ SCH (09:12)
[2016-08-20] MEDS: ASPIRIN 325 MG TAB PO SCH (09:12)
[2016-08-20 09:19] VITALS: BP 125/72; TEMP 97.4
--- NOTE | 2016-08-20 10:19 | P.DS ---
Providers Date of admission: 08/17/16 13:30 Expected date of discharge: 08/20/16 Attending physician: Miguel Ángel Sanchez Consults: 08/17/16 13:32 Consult Physician Urgent Consulting Provider: Thien Austin Consult Reason/Comments: CHF exacerbation Do you want consulting provider notified?: Yes Primary care physician: Stated None Hospital Course: 56-year-old presented on the day of admission to the emergency room with a chief complaint of noting increase edema to the bilateral lower extremities with scrotal edema. He stated that the symptoms occurred about a week ago and became more symptomatic done worse. He stated that he felt nauseated but did not note any decrease in appetite and also no active emesis. Patient stated that he became concerned came in the emergency room for the above-mentioned symptoms. Patient stated he never been told he had heart failure before does have a history of hypertension. An echocardiogram was obtained. It showed left ventricular systolic function moderately impaired with an EF between 35 and 40%. There is moderate pulmonary hypertension. Patient is being treated for acute exacerbation decompensated congestive heart failure systolic dysfunction with a mildly elevated troponin. Cardiology recommends starting on admission IV Lasix start patient on an JESSY inhibitor and a beta pierre and monitor the response patient was started on Lasix 80 IV push 3 times a day patient made significant improvement the Lasix was able to be converted to oral on August 19. Patient's admission weight was 100.4 kg. on August 20 the weight was down to 97.6 kilogram patient stated there was a significant improvement in the breathing patient felt less short of breath edema in the lower extremities was improving Patient was felt to be clinically stable from a medical and cardiac perspective the patient could be discharged home Impression Present on admission shortness of breath with bilateral's lower extremity edema suspect due to an acute exacerbation decompensated heart failure systolic dysfunction Present on admission elevated troponin suspect due to acute exacerbation congestive heart failure systolic dysfunction no evidence of acute coronary syndrome History of hypertension Echocardiogram August 18 left ventricular systolic function mildly impaired EF between 35 and 40% with moderate pulmonary hypertension Hypertensive heart disease Obesity BMI 34 Present on admission acute renal failure The above dictated assessment and findings were discussed with Dr. Sanchez Impression and the plan of care have been dictated as directed. Jerrica Alford nurse practitioner acting as a scribe for Dr. Sanchez Patient Condition at Discharge: Stable Plan - Discharge Summary New Discharge Prescriptions: Aspirin 81 mg PO DAILY #30 chewable Carvedilol [Coreg] 3.125 mg PO BID-W/MEALS #60 tab Furosemide [Lasix] 60 mg PO TID #90 tab Lisinopril [Zestril] 5 mg PO DAILY #30 tab Discharge Medication List Aspirin 81 mg PO DAILY #30 chewable 08/20/16 [Rx] Carvedilol [Coreg] 3.125 mg PO BID-W/MEALS #60 tab 08/20/16 [Rx] Furosemide [Lasix] 60 mg PO TID #90 tab 08/20/16 [Rx] Lisinopril [Zestril] 5 mg PO DAILY #30 tab 08/20/16 [Rx] Follow up Appointment(s)/Referral(s): None,Stated [Primary Care Provider] - 1-2 days Forrest Mccoy MD [STAFF PHYSICIAN] - 2 Weeks Miguel Ángel Sanchez MD [STAFF PHYSICIAN] - 1 Week Ambulatory/Diagnostic Orders: Comprehensive Metabolic Panel [LAB.AMB] Time Frame: 08/24/16, Location: Determined By Patient Discharge Disposition: HOME SELF-CARE
--- NOTE | 2016-08-20 10:25 | P.PN ---
Subjective Principal diagnosis: CHF This is a pleasant 56-year-old -[place] gentleman with history of hypertension who presented to the hospital primarily with complaints of lower extremity and scrotal edema. BNP level on admission was 5920. He was also noted to have some mild troponin abnormality likely secondary to abnormal renal function. Patient was diuresed well on IV Lasix. He is currently on by mouth Lasix at this time. He was seen and examined this morning, feels well overall. He has been up ambulating without any difficulty. Blood pressure this morning 124/70 with heart rate in the 80s. Creatinine this morning 1.4. Patient did have an echocardiogram with Doppler study performed which revealed an ejection fraction of 35-40%. We will decrease the patient's aspirin to 81 mg daily, continue Coreg, continue oral Lasix and lisinopril. Check lytes BUN and creatinine as an outpatient, consider the addition of Aldactone as an outpatient. He will follow-up with Dr. Mccoy in the office post discharge. Objective - Vital Signs Vital signs: Vital Signs Temp 97.4 F L 08/20/16 09:15 Pulse 83 08/20/16 09:15 Resp 16 08/20/16 09:15 BP 125/72 08/20/16 09:15 Pulse Ox 99 08/20/16 09:15 Intake & Output 08/19/16 08/20/16 08/20/16 18:59 06:59 18:59 Intake Total 720 1320 240 Output Total 1475 700 Balance -755 620 240 Weight 100.4 kg 97.6 kg Intake: IV 20 0.9% NS FLUSH 20 Oral 720 1300 240 Output: Urine 1475 700 Other: Voiding Method Urinal Urinal Urinal # Voids 2 - Exam PHYSICAL EXAMINATION: HEENT: Head is atraumatic, normocephalic. Pupils equal, round. Neck is supple. There is no elevated jugular venous pressure. HEART EXAMINATION: Heart S1 and S2 systolic murmur is heard. CHEST EXAMINATION: Lungs are clear to auscultation and precussion. No chest wall tenderness is noted on palpation or with deep breathing. ABDOMEN: Soft, nontender. Bowel sounds are heard. No organomegaly noted. EXTREMITIES: 2+ peripheral pulses with trace evidence of peripheral edema and no calf tenderness noted. NEUROLOGIC patient is awake, alert and oriented -3. . - Labs CBC & Chem 7: 08/20/16 05:28 08/20/16 05:28 Labs: Abnormal Lab Results - Last 24 Hours (Table) 08/19/16 08/20/16 08/20/16 Range/Units 21:11 05:28 05:28 WBC 3.0 L (3.8-10.6) k/uL RDW 16.1 H (11.5-15.5) % Lymphocytes # (Manual) 0.7 L (1.0-4.8) k/uL Chloride 94 L (98-107) mmol/L Carbon Dioxide 38 H (22-30) mmol/L Creatinine 1.41 H (0.66-1.25) mg/dL POC Glucose (mg/dL) 101 H (75-99) mg/dL Total Bilirubin 2.0 H (0.2-1.3) mg/dL Alkaline Phosphatase 143 H (38-126) U/L Assessment and Plan Plan: Assessment and plan #1 systolic congestive heart failure acute on chronic. #2 hypertension #3 mild troponin elevation, likely secondary to abnormal renal function #4 acute on chronic renal insufficiency Plan From cardiology's perspective, patient may be able to be discharged home today. We will continue Coreg, lisinopril, Lasix, check lytes BUN and creatinine in 3 days, consider the addition of Aldactone on an outpatient basis. Follow-up appointment will be made with Dr. Mccoy in the office post discharge. DNP note has been reviewed, I agree with a documented findings and plan of care. Patient was seen and examined.
== END 2016-08-20 11:46 | disposition home or self-care (01) | DRG 292 ==
LOC: EC 10:26 → 6SEL 13:30
PROVIDERS: ADMIT Family Medicine; ATTEND Family Medicine
DX: I11.0 Hypertensive heart disease with heart failure (principal); N17.9 Acute kidney failure, unspecified; I27.2 Other secondary pulmonary hypertension; I50.23 Acute on chronic systolic (congestive) heart failure; N18.9 Chronic kidney disease, unspecified; Z79.899 Other long term (current) drug therapy
CPT/HCPCS: 36415; 71020; 74020; 80053; 80061; 81001; 82150; 82550; 82553; 83690; 83735; 83880; 84132; 84484; 85025; 85610; 85730; 93005; 93306; 96365; 96375; 96376; 99285

== ENCOUNTER → 2016-08-24 | Outpatient (CLI) | payer OTHER ==
[2016-08-24 12:07] LABS: ALT 48 U/L (21-72); AST 26 U/L (17-59); Alkaline Phosphatase 151 U/L (38-126); Anion Gap 10 mmol/L; Blood Urea Nitrogen 21 mg/dL (9-20); Calcium 9.4 mg/dL (8.4-10.2); Carbon Dioxide 32 mmol/L (22-30); Chloride 99 mmol/L (98-107); Glucose 107 mg/dL (74-99); Non-African American GFR(MDRD) >60 (>60 ml/min/1.73 sqM); Potassium 4.4 mmol/L (3.5-5.1); Sodium 141 mmol/L (137-145); Total Bilirubin 1.2 mg/dL (0.2-1.3); Total Protein 7.3 g/dL (6.3-8.2)
== END | disposition home or self-care (01) ==
LOC: LABT 11:15
DX: N17.9 Acute kidney failure, unspecified (principal)
CPT/HCPCS: 36415; 80053

== ENCOUNTER 2017-03-08 10:29 | Emergency (ER) | payer OTHER ==
[2017-03-08] MEDS ORDERED: SODIUM CHLORIDE 0.9% 1,000 ML IV STA (10:45)
[2017-03-08] MEDS ORDERED: ONDANSETRON 4 MG/2 ML VIAL IVP STA (10:45)
--- NOTE | 2017-03-08 10:47 | ED ---
General Adult HPI - General Chief complaint: Nausea/Vomiting/Diarrhea Stated complaint: abdominal pain/Diarrhea Time Seen by Provider: 03/08/17 10:39 Source: patient, RN notes reviewed Mode of arrival: ambulatory Limitations: no limitations - History of Present Illness Initial comments: Patient 56-year-old male who presents emergency room today with chief complaint of symptoms of nausea vomiting over the last 3 days with abdominal pain. Patient does believe it may be something flew poisoning as there was somebody at work that had similar symptoms. Patient states that the pain started 3 days ago lower abdomen when he was on his way to work with nausea and vomiting. States still feeling nauseated. States pain comes and goes. States appetites been well. Denies any other complaints or symptoms at this time. Patient denies any recent fever, chills, shortness of breath, chest pain, back pain, numbness or tingling, dysuria or hematuria, constipation or diarrhea, headaches or visual changes, or any other complaints. - Related Data Home Medications Medication Instructions Recorded Confirmed L.acidoph,Paracasei, B.lactis 1 cap PO DAILY 03/08/17 03/08/17 [Probiotic] Previous Rx's Medication Instructions Recorded Lisinopril [Zestril] 5 mg PO DAILY #30 tab 08/20/16 Ondansetron Odt [Zofran ODT] 4 mg PO Q8HR PRN #20 tab 03/08/17 Allergies Allergy/AdvReac Type Severity Reaction Status Date / Time No Known Allergies Allergy Verified 03/08/17 11:04 Review of Systems ROS Statement: Those systems with pertinent positive or pertinent negative responses have been documented in the HPI. ROS Other: All systems not noted in ROS Statement are negative. Past Medical History Past Medical History: Coronary Artery Disease (CAD), Chest Pain / Angina, Hypertension, Myocardial Infarction ([place]) Additional Past Medical History / Comment(s): cyst R upper back. Last Myocardial Infarction Date:: 2009 History of Any Multi-Drug Resistant Organisms: None Reported Past Surgical History: Heart Catheterization, Hernia Repair Additional Past Surgical History / Comment(s): L inguinal hernia repair. Past Anesthesia/Blood Transfusion Reactions: No Reported Reaction Past Psychological History: No Psychological Hx Reported Smoking Status: Never smoker Past Alcohol Use History: None Reported Past Drug Use History: None Reported - Past Family History Father Family Medical History: No Reported History Additional Family Medical History / Comment(s): Father in his 70's Mother Family Medical History: Cancer Additional Family Medical History / Comment(s): Mother of ovarian cancer. General Exam - General Exam Comments Initial Comments: General: The patient is awake and alert, in no distress, and does not appear acutely ill. Eye: Pupils are equal, round and reactive to light, extra-ocular movements are intact. No nystagmus. There is normal conjunctiva bilaterally. No signs of icterus. Ears, nose, mouth and throat: There are moist mucous membranes and no oral lesions. Neck: The neck is supple, there is no tenderness or JVD. Cardiovascular: There is a regular rate and rhythm. No murmur, rub or gallop is appreciated. Respiratory: Lungs are clear to auscultation, respirations are non-labored, breath sounds are equal. No wheezes, stridor, rales, or rhonchi. Gastrointestinal: Normal appearance. Normal bowel sounds. Abdomen soft on palpation. Patient does have tenderness middle of the lower abdomen. No rebound tenderness. No Guarding. No CVA tenderness. Musculoskeletal: Normal ROM, no tenderness. Strength 5/5. Sensation intact. Pulses equal bilaterally 2+. Neurological: A&O x 3. CN II-XII intact, There are no obvious motor or sensory deficits. Coordination appears grossly intact. Speech is normal. Skin: Skin is warm and dry and no rashes or lesions are noted. Psychiatric: Cooperative, appropriate mood & affect, normal judgment. Limitations: no limitations Course Vital Signs 03/08/17 10:35 Temperature 97.0 F L Pulse Rate 97 Respiratory 20 Rate Blood Pressure 173/93 O2 Sat by Pulse 97 Oximetry Medical Decision Making - Medical Decision Making Patient reexamined at this time shows no signs of distress. Resting comfortable. Denies any abdominal pain. His abdomen soft nontender. Patient labs been reviewed. X-rays negative. Results were discussed with patient. Patient will be discharged home with nausea medication. Advised to follow-up family doctor or return here to the emergency room if any symptoms increase or worsen or any concerns - Lab Data Result diagrams: 03/08/17 11:07 03/08/17 11:07 Lab Results 03/08/17 03/08/17 03/08/17 Range/Units 11:07 11:07 12:11 WBC 3.3 L (3.8-10.6) k/uL RBC 4.41 (4.30-5.90) m/uL Hgb 13.6 (13.0-17.5) gm/dL Hct 43.8 (39.0-53.0) % MCV 99.3 (80.0-100.0) fL MCH 30.9 (25.0-35.0) pg MCHC 31.1 (31.0-37.0) g/dL RDW 16.0 H (11.5-15.5) % Plt Count 308 (150-450) k/uL Neutrophils % 59 % Lymphocytes % 25 % Monocytes % 8 % Eosinophils % 4 % Basophils % 1 % Neutrophils # 1.9 (1.3-7.7) k/uL Lymphocytes # 0.8 L (1.0-4.8) k/uL Monocytes # 0.3 (0-1.0) k/uL Eosinophils # 0.1 (0-0.7) k/uL Basophils # 0.0 (0-0.2) k/uL Hypochromasia Slight Anisocytosis Slight Macrocytosis Slight Sodium 139 (137-145) mmol/L Potassium 4.1 (3.5-5.1) mmol/L Chloride 108 H (98-107) mmol/L Carbon Dioxide 20 L (22-30) mmol/L Anion Gap 11 mmol/L BUN 20 (9-20) mg/dL Creatinine 1.20 (0.66-1.25) mg/dL Est GFR (MDRD) Af Amer >60 (>60 ml/min/1.73 sqM) Est GFR (MDRD) Non-Af >60 (>60 ml/min/1.73 sqM) Glucose 95 (74-99) mg/dL Calcium 8.9 (8.4-10.2) mg/dL Total Bilirubin 3.8 H (0.2-1.3) mg/dL AST 28 (17-59) U/L ALT 48 (21-72) U/L Alkaline Phosphatase 95 (38-126) U/L Total Protein 5.9 L (6.3-8.2) g/dL Albumin 3.3 L (3.5-5.0) g/dL Amylase 38 (30-110) U/L Lipase 103 (23-300) U/L Urine Color Yellow Urine Appearance Clear (Clear) Urine pH 6.0 (5.0-8.0) Ur Specific [place] 1.018 (1.001-1.035) Urine Protein 3+ H (Negative) Urine Glucose (UA) Negative (Negative) Urine Ketones Trace H (Negative) Urine Blood Small H (Negative) Urine Nitrite Negative (Negative) Urine Bilirubin 1+ H (Negative) Urine Urobilinogen 4.0 (<2.0) mg/dL Ur Leukocyte Esterase Negative (Negative) Urine RBC 1 (0-5) /hpf Urine WBC <1 (0-5) /hpf Ur Squamous Epith Cells <1 (0-4) /hpf Urine Bacteria Rare H (None) /hpf Hyaline Casts 17 H (0-2) /lpf Urine Mucus Rare H (None) /hpf Disposition Clinical Impression: Nausea & vomiting Disposition: HOME SELF-CARE Condition: Good Instructions: Acute Nausea and Vomiting (ED) Additional Instructions: Please use medication as discussed. Please follow-up with family doctor in the next 2 days of symptoms have not improved. Please return to emergency room if the symptoms increase or worsen or for any other concerns. Prescriptions: Ondansetron Odt [Zofran ODT] 4 mg PO Q8HR PRN #20 tab PRN Reason: Nausea Referrals: Beth Cortés MD [Primary Care Provider] - 1-2 days Time of Disposition: 12:40
--- NOTE | 2017-03-08 11:30 | XR ---
EXAMINATION TYPE: XR KUB DATE OF EXAM: 03/08/2017 COMPARISON: NONE INDICATION: Abdominal pain and vomiting x3 days TECHNIQUE: Upright view abdomen FINDINGS: There is normal colonic bowel gas. Some nonspecific small bowel gas in the right upper quadrant. No s uspicious air-fluid levels or differential air-fluid are present. No free air is evident. Psoas margins are normal. No organomegaly is present. Note is made of cardiomegaly. IMPRESSION: 1. Nonspecific abdomen. 2. Cardiomegaly
[2017-03-08 11:31] LABS: ALT 48 U/L (21-72); AST 28 U/L (17-59); Alkaline Phosphatase 95 U/L (38-126); Amylase 38 U/L (30-110); Anion Gap 11 mmol/L; Anisocytosis Slight; Basophils % (A) 1 %; Blood Urea Nitrogen 20 mg/dL (9-20); CH 31.7; CHCM 32.2; Calcium 8.9 mg/dL (8.4-10.2); Carbon Dioxide 20 mmol/L (22-30); Chloride 108 mmol/L (98-107); Eosinophils # (A) 0.1 k/uL (0-0.7); Eosinophils % (A) 4 %; Glucose 95 mg/dL (74-99); HCT 43.8 % (39.0-53.0); HDW 2.99; HGB 13.6 gm/dL (13.0-17.5); Hypochromasia Slight; Luc % (Auto) 3; Lymphocytes # (A) 0.8 k/uL (1.0-4.8); Lymphocytes % (A) 25 %; MCH 30.9 pg (25.0-35.0); MCHC 31.1 g/dL (31.0-37.0); MCV 99.3 fL (80.0-100.0); Macrocytosis Slight; Mean Platelet Volume 8.1; Monocytes # (A) 0.3 k/uL (0-1.0); Monocytes % (A) 8 %; Neutrophils # (A) 1.9 k/uL (1.3-7.7); Neutrophils % (A) 59 %; Non-African American GFR(MDRD) >60 (>60 ml/min/1.73 sqM); Potassium 4.1 mmol/L (3.5-5.1); RBC 4.41 m/uL (4.30-5.90); Sodium 139 mmol/L (137-145); Total Bilirubin 3.8 mg/dL (0.2-1.3); Total Protein 5.9 g/dL (6.3-8.2); WBC 3.3 k/uL (3.8-10.6); WBC (Perox) 3.33
[2017-03-08 12:25] LABS: Appearance,Urine Clear (Clear); Bacteria,Urine Rare /hpf; Bilirubin,Urine 1+ (Negative); Glucose,Urine (UA) Negative (Negative); Ketones,Urine Trace (Negative); Leukocyte Esterase,Urine Negative (Negative); Mucus,Urine Rare /hpf; Nitrite,Urine Negative (Negative); Particle Count 3205; Protein,Urine 3+ (Negative); RBC,Urine 1 /hpf (0-5); Specific Gravity,Urine 1.018 (1.001-1.035); Squamous Epithelial Cell,Urine <1 /hpf (0-4); UA Billing (MACRO vs. MICRO) MICRO; WBC,Urine <1 /hpf (0-5)
[2017-03-08 12:54] VITALS: BP 156/95; PULSE 87; RESP 18; TEMP 97.8
== END 2017-03-08 12:54 | disposition home or self-care (01) ==
LOC: EC 10:29
DX: R11.2 Nausea with vomiting, unspecified (principal); R10.30 Lower abdominal pain, unspecified; Z98.890 Other specified postprocedural states
CPT/HCPCS: 36415; 80053; 82150; 83690; 85025; 81001; 74000; 99284; 96374; 96361 ×2; J2405

== ENCOUNTER 2017-08-17 16:37 | Emergency (ER) | payer OTHER ==
[2017-08-17 16:47] VITALS: BP 134/96; PULSE 92; RESP 18; TEMP 98
--- NOTE | 2017-08-17 17:10 | ED ---
General Adult HPI - General Chief complaint: Neck Pain/Injury Stated complaint: Back/Neck Pain Time Seen by Provider: 08/17/17 16:52 Source: patient Mode of arrival: ambulatory Limitations: no limitations - History of Present Illness Initial comments: 57-year-old male presents for neck pain. Patient states that like a muscular pain does not P moves or lays down or bends his neck certain way he developed some pain over the muscle areas. He states that he started to develop last few weeks or so. He states that he takes better. Denies any falls traumas or injuries to the neck. He states the pain is worse with movement better with rest. Patient states that he chronically has some abdominal issues chronically has vomiting on and off states this is nothing different than normal. He is asleep so she thought that she would tell. She denies any fever chills with this. He denies any numbness or tingling. Patient denies any recent fever, chills, shortness of breath, chest pain, back pain, abdominal pain, nausea vomiting, numbness or tingling, dysuria or hematuria, constipation or diarrhea, headaches or visual changes, or any other current symptoms. - Related Data Home Medications Medication Instructions Recorded Confirmed [place] [employer] 5 ml PO DAILY PRN 08/17/17 08/17/17 Allergies Allergy/AdvReac Type Severity Reaction Status Date / Time No Known Allergies Allergy Verified 08/17/17 17:05 Review of Systems ROS Statement: Those systems with pertinent positive or pertinent negative responses have been documented in the HPI. ROS Other: All systems not noted in ROS Statement are negative. Past Medical History Past Medical History: Coronary Artery Disease (CAD), Chest Pain / Angina, Hypertension, Myocardial Infarction ([place]) Additional Past Medical History / Comment(s): cyst R upper back. Last Myocardial Infarction Date:: 2009 History of Any Multi-Drug Resistant Organisms: None Reported Past Surgical History: Heart Catheterization, Hernia Repair Additional Past Surgical History / Comment(s): L inguinal hernia repair. Past Anesthesia/Blood Transfusion Reactions: No Reported Reaction Past Psychological History: No Psychological Hx Reported Smoking Status: Never smoker Past Alcohol Use History: None Reported Past Drug Use History: None Reported - Past Family History Father Family Medical History: No Reported History Additional Family Medical History / Comment(s): Father in his 70's Mother Family Medical History: Cancer Additional Family Medical History / Comment(s): Mother of ovarian cancer. General Exam - General Exam Comments Initial Comments: General: The patient is awake and alert, in no distress, and does not appear acutely ill. Eye: Pupils are equal, round and reactive to light, extra-ocular movements are intact; there is normal conjunctiva bilaterally. No signs of icterus. Ears, nose, mouth and throat: There are moist mucous membranes and no oral lesions. Neck: The neck is supple, there is no area. Cardiovascular: There is a regular rate and rhythm. No murmur, rub or gallop is appreciated. Respiratory: Lungs are clear to auscultation, respirations are non-labored, breath sounds are equal. No wheezes, stridor, rales, or rhonchi. Gastrointestinal: Soft, non-distended, non-tender abdomen without masses or organomegaly noted. There is no rebound or guarding present. No CVA tenderness. Bowel sounds are unremarkable. Back: There is no tenderness to palpation in the midline. There is no obvious deformity. No rashes noted. Musculoskeletal: Normal ROM, no tenderness, There is no pedal edema. There is no calf tenderness or swelling. Sensation intact. Pulses equal bilaterally 2+. Neurological: CN II-XII intact, There are no obvious motor or sensory deficits. Coordination appears grossly intact. Speech is normal. Skin: Skin is warm and dry and no rashes or lesions are noted. Psychiatric: Cooperative, appropriate mood & affect, normal judgment. Limitations: no limitations Course Vital Signs 08/17/17 16:45 Temperature 98.0 F Pulse Rate 92 Respiratory 18 Rate Blood Pressure 134/96 O2 Sat by Pulse 98 Oximetry Medical Decision Making - Medical Decision Making 57-year-old male presents with what appears to be cervical strain. At this time he states Tylenol has improved the area. We discussed warm compresses for home. We did discuss return parameters and follow-up we did discuss continued outpatient follow-up for his chronic vomiting abdominal pain symptoms. Patient stated he understood any significant this plan. All questions have been answered. He'll be discharged. - Radiology Data Radiology results: report reviewed, image reviewed Disposition Clinical Impression: Strain of neck muscle Disposition: HOME SELF-CARE Condition: Stable Instructions: Cervical Strain (ED) Additional Instructions: Please use medication as discussed. Please follow up with family doctor if symptoms have not improved over the next two days. Please return to the emergency room if your symptoms increase or worsen or for any other concerns. Referrals: Gus Caballero MD [Primary Care Provider] - 1-2 days Time of Disposition: 17:26
--- NOTE | 2017-08-17 17:21 | XR ---
PROCEDURE: XR cervical spine comp, 5 views DATE AND TIME: 08/17/2017 5:11 PM REFERRING PHYSICIAN: Richelle Malcolm CLINICAL INDICATION: PHH, Pain. Intermittent left-sided neck pain for 3 to 4 days. TECHNIQUE: Department protocol. COMPARISON: None FINDINGS: There is no fracture or malalignment. Multilevel advanced cervical spondylosis changes are noted, most advanced at C4-5, C5-6 and C6-7. There is loss of the normal lordotic curvature with cerv ical spine straightening noted. The soft tissues are unremarkable. IMPRESSION: 1. NO ACUTE PROCESS. 2. MULTILEVEL ADVANCED CERVICAL SPONDYLOSIS CHANGES.
== END 2017-08-17 17:50 | disposition home or self-care (01) ==
LOC: EC 16:37
DX: S16.1XXA Strain of muscle, fascia and tendon at neck level, initial encounter (principal); G89.29 Other chronic pain; R10.9 Unspecified abdominal pain; R11.10 Vomiting, unspecified; X58.XXXA Exposure to other specified factors, initial encounter
CPT/HCPCS: 72050; 99283

== ENCOUNTER 2017-12-22 10:44 | Emergency (ER) | payer SELFPAY ==
[2017-12-22 10:55] VITALS: BP 139/93; PULSE 100; RESP 18
[2017-12-22 10:56] VITALS: TEMP 97.3
--- NOTE | 2017-12-22 11:47 | ED ---
General Adult HPI - General Chief complaint: Abdominal Pain Stated complaint: Abd Pain Time Seen by Provider: 12/22/17 10:50 Source: patient, RN notes reviewed Mode of arrival: ambulatory Limitations: no limitations - History of Present Illness Initial comments: This is a 57-year-old male who presents emergency Department complaining that he has a bump at his belly button and a lump in his right groin. Patient states occasionally hurt a little but it only lasts a second or 2. Patient states it is been here a while but he wanted to get it figured out. Patient states his primary medical care doctor gave him about for his belly but the belly button still bulges out on occasion. Patient states he does not do any heavy lifting. Patient denies any abdominal pain patient denies nausea vomiting diarrhea. Patient denies any recent fever chills or cough. - Related Data Home Medications Medication Instructions Recorded Confirmed Furosemide [Lasix] 40 mg PO AC-SUPPER 12/22/17 12/22/17 Furosemide [Lasix] 60 mg PO DAILY 12/22/17 12/22/17 Allergies Allergy/AdvReac Type Severity Reaction Status Date / Time No Known Allergies Allergy Verified 12/22/17 11:30 Review of Systems ROS Statement: Those systems with pertinent positive or pertinent negative responses have been documented in the HPI. ROS Other: All systems not noted in ROS Statement are negative. Past Medical History Past Medical History: Coronary Artery Disease (CAD), Chest Pain / Angina, Hypertension, Myocardial Infarction ([place]) Additional Past Medical History / Comment(s): cyst R upper back. Last Myocardial Infarction Date:: 2009 History of Any Multi-Drug Resistant Organisms: None Reported Past Surgical History: Heart Catheterization, Hernia Repair Additional Past Surgical History / Comment(s): L inguinal hernia repair. Past Anesthesia/Blood Transfusion Reactions: No Reported Reaction Past Psychological History: No Psychological Hx Reported Smoking Status: Never smoker Past Alcohol Use History: None Reported Past Drug Use History: None Reported - Past Family History Father Family Medical History: No Reported History Additional Family Medical History / Comment(s): Father in his 70's Mother Family Medical History: Cancer Additional Family Medical History / Comment(s): Mother of ovarian cancer. General Exam - General Exam Comments Initial Comments: GENERAL: Patient is well-developed and well-nourished. Patient is nontoxic and well- hydrated and is in no acute distress. ENT: Neck is soft and supple. No significant lymphadenopathy is noted. Oropharynx is clear. Moist mucous membranes. Neck has full range of motion without eliciting any pain. EYES: The sclera were anicteric and conjunctiva were pink and moist. Extraocular movements were intact and pupils were equal round and reactive to light. Eyelids were unremarkable. PULMONARY: Unlabored respirations. Good breath sounds bilaterally. No audible rales rhonchi or wheezing was noted. CARDIOVASCULAR: There is a regular rate and rhythm without any murmurs gallops or rubs. ABDOMEN: Patient has a reducible umbilical hernia and a reducible right inguinal hernia SKIN: Skin is clear with no lesions or rashes and otherwise unremarkable. NEUROLOGIC: Patient is alert and oriented x3. Cranial nerves II through XII are grossly intact. Motor and sensory are also intact. Normal speech, volume and content. Symmetrical smile. MUSCULOSKELETAL: Normal extremities with adequate strength and full range of motion. PSYCHIATRIC: Normal psychiatric evaluation. Limitations: no limitations Course Vital Signs 12/22/17 10:50 Temperature 97.3 F L Pulse Rate 100 Respiratory 18 Rate Blood Pressure 139/93 O2 Sat by Pulse 99 Oximetry Disposition Clinical Impression: Reducible inguinal hernia, Umbilical hernia Disposition: HOME SELF-CARE Condition: Good Instructions: Umbilical Hernia (ED), Inguinal Hernia (ED) Is patient prescribed a controlled substance at d/c from ED?: No Referrals: Gus Caballero MD [Primary Care Provider] - 1-2 days Time of Disposition: 11:46
== END 2017-12-22 12:04 | disposition home or self-care (01) ==
LOC: EC 10:44
DX: K40.90 Unilateral inguinal hernia, without obstruction or gangrene, not specified as recurrent (principal); K42.9 Umbilical hernia without obstruction or gangrene; I25.10 Atherosclerotic heart disease of native coronary artery without angina pectoris; I10 Essential (primary) hypertension; I25.2 Old myocardial infarction; Z95.5 Presence of coronary angioplasty implant and graft; Z79.899 Other long term (current) drug therapy
CPT/HCPCS: 99283

== ENCOUNTER 2018-03-07 10:15 | Emergency (ER) | payer OTHER ==
[2018-03-07 10:23] VITALS: BP 107/70; PULSE 62; RESP 20; TEMP 98.1
--- NOTE | 2018-03-07 10:44 | ED ---
Abdominal Pain HPI - General Chief Complaint: Abdominal Pain Stated Complaint: hernia Time Seen by Provider: 03/07/18 10:23 Source: patient, RN notes reviewed Mode of arrival: wheelchair Limitations: no limitations - History of Present Illness Initial Comments: This is a 57-year-old male who presents to the emergency department with chief complaint of abdominal pain. Patient reports that he has a hernia. He states that the hernia pops out and only goes back and when he lays down. He states that the only way he can walk is if he clothes pins the opening back together. He reports a burning sensation. He states he has normal bowel movements. Denies fevers or chills, nausea or vomiting, diarrhea or constipation. Denies chest pain or shortness of breath. - Related Data Home Medications Medication Instructions Recorded Confirmed Furosemide [Lasix] 40 mg PO AC-SUPPER 12/22/17 12/22/17 Furosemide [Lasix] 60 mg PO DAILY 12/22/17 12/22/17 Allergies Allergy/AdvReac Type Severity Reaction Status Date / Time No Known Allergies Allergy Verified 03/07/18 10:22 Review of Systems ROS Statement: Those systems with pertinent positive or pertinent negative responses have been documented in the HPI. ROS Other: All systems not noted in ROS Statement are negative. Past Medical History Past Medical History: Coronary Artery Disease (CAD), Chest Pain / Angina, Hypertension, Myocardial Infarction ([place]) Additional Past Medical History / Comment(s): cyst R upper back. Last Myocardial Infarction Date:: 2009 History of Any Multi-Drug Resistant Organisms: None Reported Past Surgical History: Heart Catheterization, Hernia Repair Additional Past Surgical History / Comment(s): L inguinal hernia repair. Past Anesthesia/Blood Transfusion Reactions: No Reported Reaction Past Psychological History: No Psychological Hx Reported Smoking Status: Never smoker Past Alcohol Use History: None Reported Past Drug Use History: None Reported - Past Family History Father Family Medical History: No Reported History Additional Family Medical History / Comment(s): Father in his 70's Mother Family Medical History: Cancer Additional Family Medical History / Comment(s): Mother of ovarian cancer. General Exam - General Exam Comments Initial Comments: General: Awake and alert, well-developed; in no apparent distress. HEENT: Head atraumatic, normocephalic. Pupils are equal, round and reactive to light. Extraocular movements intact. Oropharynx moist without erythema or exudate. Neck: Supple. Normal ROM. Cardiovascular: Regular rate and rhythm. No murmurs, rubs or gallops. Chest symmetrical. Respiratory: Lungs clear to auscultation bilaterally. No wheezes, rales or rhonchi. Normal respiratory effort with no use of accessory muscles. Abdomen: Soft, non-tender, non-distended. Normal bowel sounds in all 4 quadrants. Reducible right inguinal hernia. Reducible umbilical hernia. Musculoskeletal: Normal ROM, no tenderness bilateral upper and lower extremities. Ambulating normally. Skin: [place], warm and dry without rashes or lesions. Neurological: Alert and oriented x3. CN II-XII grossly intact. Speech is fluent and answers are appropriate. No focal neuro deficits. Psychiatric: Normal mood and affect. No overt signs of depression or anxiety noted. Limitations: no limitations Course Vital Signs 03/07/18 10:21 Temperature 98.1 F Pulse Rate 62 Respiratory 20 Rate Blood Pressure 107/70 O2 Sat by Pulse 97 Oximetry Medical Decision Making - Medical Decision Making This is a 57-year-old male who presents to the emergency department with chief complaint of abdominal pain. Patient states that he has a hernia that has been popping out. He states that it does go back and when he lies down. On physical examination, there are reducible umbilical and right inguinal hernias. I educated patient that the treatment for this is surgical. Educated patient that applying clothespins is not safe. Patient will be provided with contact information for on-call surgeon, Dr. Nath. Patient's vital signs are stable and he is in acute distress. He will be discharged home at this time. He is in agreement and voices understanding. All questions are answered. Disposition Clinical Impression: Reducible right inguinal hernia, Umbilical hernia Disposition: HOME SELF-CARE Condition: Good Instructions: Umbilical Hernia (ED), Inguinal Hernia (ED) Additional Instructions: Please follow-up with Dr. Nath, general surgeon. Please follow up with primary care provider within 1-2 days. Return to emergency department if symptoms should worsen or any concerns arise. Is patient prescribed a controlled substance at d/c from ED?: No Referrals: Nonstaff,Physician [Primary Care Provider] - 1-2 days Adolfo Nath MD [STAFF PHYSICIAN] - 1-2 days Time of Disposition: 10:49
== END 2018-03-07 10:57 | disposition home or self-care (01) ==
LOC: EC 10:15
DX: K40.90 Unilateral inguinal hernia, without obstruction or gangrene, not specified as recurrent (principal); K42.9 Umbilical hernia without obstruction or gangrene; I25.119 Atherosclerotic heart disease of native coronary artery with unspecified angina pectoris; I25.2 Old myocardial infarction; Z79.899 Other long term (current) drug therapy; Z95.818 Presence of other cardiac implants and grafts
CPT/HCPCS: 99283